=== PATIENT | female | born 1980 | race American Indian/Alaskan Native ===

== ENCOUNTER 2021-11-29 14:50 | Emergency (ER) | payer MEDICAID ==
[2021-11-29 16:12] LABS: Bilirubin,Urine NEG (Negative); Blood,Urine NEG (Negative); Color,Urine Yellow (Yellow); Mucus,Urine FEW /HPF; Protein,Urine <15 mg/dL mg/dL (Negative); Urobilinogen,Urine < 2.0 mg/dL (<2.0); WBC,Urine < 1.0 /HPF (0.0-6.0)
[2021-11-29 16:27] LABS: HCG Qualitative,Urine Negative (Negative)
[2021-11-30] MEDS ORDERED: FAMOTIDINE 20 MG TAB PO ONE (01:53)
[2021-11-30] MEDS ORDERED: ONDANSETRON 4 MG ODT TAB PO ONE (01:53)
[2021-11-30] MEDS ORDERED: DICYCLOMINE 20 MG TAB PO ONE (01:53)
--- NOTE | 2021-11-30 02:15 | Emergency Department Report ---
ED N/V/D HPI - General Chief complaint: Nausea/Vomiting/Diarrhea Stated complaint: NAUSEA/DIZZY/HOT FLASHES Source: patient Mode of arrival: Ambulatory Limitations: No Limitations - History of Present Illness Initial comments: Patient is 41-year-old -Mosoth[place] female with a history of GERD and suspected gastric ulcers who presents to the ED with persistent intermittent ep igastric pain for the last 2 days after she ran out of her regular medications, omeprazole and Phenergan. Patient states that the pain is worse with food. Patient denies dizziness, syncope, diarrhea, fever, chills, vomiting, cough, sore throat, chest pain or shortness of breath. MD complaint: nausea, vomiting, abdominal pain (EPIGASTRIC PAIN) -: Gradual, month(s) (3) Description of Vomiting: food contents, watery Associated Abdominal Pain: Yes (Chronic mild epigastric) Location: epigastric Radiation: none Severity: mild Pain Scale: 2 Quality: aching, dull Consistency: intermittent Improves with: none Worsens with: eating, vomiting Context: other (chronic GERD) Associated Symptoms: denies other symptoms, loss of appetite. denies: myalgias, chest pain, cough, diaphoresis, fever/chills, headaches, malaise, nausea/vomiting, rash, dysuria, shortness of breath, syncope, weakness - Related Data Previous Rx's Medication Instructions Recorded Last Taken Type Dicyclomine [Bentyl] 20 mg PO Q6H #24 tablet 11/30/21 Unknown Rx Famotidine [Pepcid] 20 mg PO BID #60 tablet 11/30/21 Unknown Rx Omeprazole 40 mg PO DAILY #60 cap 11/30/21 Unknown Rx Promethazine [Phenergan] 25 mg PO Q6HR PRN #30 tab 11/30/21 Unknown Rx Allergies Allergy/AdvReac Type Severity Reaction Status Date / Time No Known Allergies Allergy Verified 11/29/21 15:46 ED Review of Systems ROS: Stated complaint: NAUSEA/DIZZY/HOT FLASHES Other details as noted in HPI Constitutional: denies: chills, fever Eyes: denies: eye pain, eye discharge, vision change ENT: denies: ear pain, throat pain Respiratory: denies: cough, shortness of breath, wheezing Cardiovascular: denies: chest pain, palpitations Endocrine: no symptoms reported Gastrointestinal: abdominal pain (epigastric), nausea, vomiting. denies: diarrhea Genitourinary: denies: urgency, dysuria, discharge Musculoskeletal: denies: back pain, joint swelling, arthralgia Skin: denies: rash, lesions Neurological: denies: headache, weakness, paresthesias Psychiatric: denies: anxiety, depression Hematological/Lymphatic: denies: easy bleeding, easy bruising ED Past Medical Hx - Past Medical History Previous Medical History?: No - Surgical History Past Surgical History?: No - Medications Home Medications: Home Medications Medication Instructions Recorded Confirmed Last Taken Type Dicyclomine [Bentyl] 20 mg PO Q6H #24 tablet 11/30/21 Unknown Rx Famotidine [Pepcid] 20 mg PO BID #60 tablet 11/30/21 Unknown Rx Omeprazole 40 mg PO DAILY #60 cap 11/30/21 Unknown Rx Promethazine [Phenergan] 25 mg PO Q6HR PRN #30 tab 11/30/21 Unknown Rx ED Physical Exam - General Limitations: No Limitations General appearance: alert, in no apparent distress - Head Head exam: Present: atraumatic, normocephalic, normal inspection - Eye Eye exam: Present: normal appearance, PERRL, EOMI Pupils: Present: normal accommodation - ENT ENT exam: Present: normal exam, normal orophraynx, mucous membranes moist, TM's normal bilaterally, normal external ear exam - Neck Neck exam: Present: normal inspection, full ROM. Absent: tenderness - Respiratory Respiratory exam: Present: normal lung sounds bilaterally. Absent: respiratory distress, wheezes, rhonchi, chest wall tenderness, accessory muscle use, decreased breath sounds, prolonged expiratory - Cardiovascular Cardiovascular Exam: Present: regular rate, normal rhythm, normal heart sounds. Absent: systolic murmur, diastolic murmur, rubs, gallop - GI/Abdominal GI/Abdominal exam: Present: soft, normal bowel sounds. Absent: tenderness, guarding, rebound, rigid, hyperactive bowel sounds, hypoactive bowel sounds, organomegaly, mass - Extremities Exam Extremities exam: Present: normal inspection, full ROM, normal capillary refill - Back Exam Back exam: Present: normal inspection, full ROM. Absent: tenderness, CVA tenderness (R), CVA tenderness (L), muscle spasm, paraspinal tenderness, vertebral tenderness - Neurological Exam Neurological exam: Present: alert, oriented X3, CN II-XII intact, normal gait, reflexes normal - Psychiatric Psychiatric exam: Present: normal affect, normal mood - Skin Skin exam: Present: warm, dry, intact, normal color. Absent: rash ED Course Vital Signs 11/29/21 11/29/21 15:46 19:59 Temperature 98.6 F 98.1 F Pulse Rate 86 78 Respiratory 16 16 Rate Blood Pressure 106/46 Blood Pressure 130/71 [Left] O2 Sat by Pulse 99 97 Oximetry ED Medical Decision Making - Medical Decision Making This is 41-year-old -[place]osoth[place] female with a history of GERD and suspected gastric ulcers who presents to the ED with persistent intermittent epigastric pain for the last 2 days after she ran out of her regular medications, omeprazole and Phenergan. In the ED, patient is alert and oriented x3 and is not in any distress. Patient was treated for GERD in the ED and also nausea. Patient was discharged home with a refill of her medications and advised to follow-up with her GI physician or primary care physician in 7 to 10 days for reevaluation. Patient is advised return to the ED immediately if symptoms get worse. - Differential Diagnosis GERD; Gastritis; Gastric ulcers Critical care attestation.: If time is entered above; I have spent that time in minutes in the direct care of this critically ill patient, excluding procedure time. ED Disposition Clinical Impression: Nausea and vomiting in adult GERD (gastroesophageal reflux disease) Qualifiers: Esophagitis presence: esophagitis presence not specified Qualified Code(s): K21.9 - Gastro-esophageal reflux disease without esophagitis Disposition: 01 HOME / SELF CARE / HOMELESS Is pt being admited?: No Does the pt Need Aspirin: No Condition: Stable Instructions: Heartburn, [id number], Gastroesophageal Reflux Disease, Adult, [id number], Nausea and Vomiting, Adult, [id number] Additional Instructions: Take medication with food, drink plenty of fluids and follow-up with your primary care physician in 7 to 10 days for reevaluation. Consider following up with a GI physician as needed. Return to the ED immediately if symptoms get worse. Prescriptions: Dicyclomine [Bentyl] 20 mg PO Q6H #24 tablet Omeprazole 40 mg PO DAILY #60 cap Famotidine [Pepcid] 20 mg PO BID #60 tablet Promethazine [Phenergan] 25 mg PO Q6HR PRN #30 tab PRN Reason: Nausea Referrals: [facility] [Provider Group] - 7-10 days Time of Disposition: 02:16 Print Language: SAMOAN
[2021-11-30 03:24] VITALS: BP 116/51
--- NOTE | 2021-11-30 12:31 | Electrocardiograph Report ---
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
== END 2021-11-30 03:28 | disposition home or self-care (01) ==
LOC: ED 14:50
DX: K21.9 Gastro-esophageal reflux disease without esophagitis (principal); R11.2 Nausea with vomiting, unspecified; Z79.899 Other long term (current) drug therapy
CPT/HCPCS: 81001; 81025; 93005; 99283; J3490; Q0162